=== PATIENT | female | born 1960 | race Caucasian/White ===

== ENCOUNTER → 2019-04-14 | Outpatient (CLI) | payer BC ==
--- NOTE | 2019-04-14 15:53 | KCIC ---
EXAM: Right knee, 3 views. HISTORY: Pain. COMPARISON: None. FINDINGS: 3 views of the right knee are obtained. There is mild to moderate marginal compartment spurring. There is enthesopathy along the patella. There is a small right knee effusion. There is no fracture, dislocation or subluxation. IMPRESSION: 1. Mild to moderate medial compartment osteoarthritis of the right knee with a small joint effusion. 2. No acute osseous finding. Electronically signed by: Isabel Kaur MD (04/14/2019 3:51 PM) [facility]
== END | disposition home or self-care (01) ==
LOC: KCIC 15:27
PROVIDERS: ATTEND Family Medicine
DX: M17.11 Unilateral primary osteoarthritis, right knee (principal); M25.461 Effusion, right knee; M76.891 Other specified enthesopathies of right lower limb, excluding foot
CPT/HCPCS: 73562